=== PATIENT | female | born 2000 | race African-American/Black ===

== ENCOUNTER 2023-07-01 02:20 | Emergency (ER) | payer OTHER ==
[~2023-07-01] VITALS: Ht 172.7 cm; Wt 66.7 kg
[2023-07-01 02:46] VITALS: BP 126/70; PULSE 86; RESP 14; TEMP 98.2; O2SAT 99
[2023-07-01] MEDS ORDERED: DOXY-487 PO (04:19)
[2023-07-01] MEDS ORDERED: cefTRIAXone 500 MG VIAL ONE (04:44)
[2023-07-01] MEDS ORDERED: LIDOCAINE MPF 1% 5 ML ONE (04:45)
[2023-07-01] MEDS: DOXYCYCLINE 100 MG CAP PO SCH (04:50)
[2023-07-01] MEDS: cefTRIAXone 500 MG in LIDOCAINE MPF 1% 1 ML IM ONE (04:53)
[2023-07-01 05:06] VITALS: BP 126/70; PULSE 86; RESP 14; TEMP 98.2; O2SAT 99
[2023-07-01] MEDS ORDERED: DOXYCYCLINE 100 MG CAP PO SCH (09:00)
[2023-07-01 10:01] LABS: NEISSERIA GONORRHOEAE PCR Detected (NOTdetected)
== END 2023-07-01 05:06 | disposition home or self-care (01) ==
LOC: MED 02:20
DX: Z00.8 Encounter for other general examination (principal); Z79.899 Other long term (current) drug therapy
CPT/HCPCS: 81025; 87210; 87491; 96372; 99283; J0696; J2001